=== PATIENT | female | born 1955 | race Caucasian/White ===

== ENCOUNTER 2018-10-19 11:43 | Emergency (ER) | payer BC ==
[2018-10-19 11:52] VITALS: BP 139/84; PULSE 84; RESP 18; TEMP 98.3
[2018-10-19] MEDS ORDERED: DIPH,PERTUS(ACELL)TETVAC-LF 0.5 ML VIAL IM ONE (13:13)
[2018-10-19] MEDS ORDERED: DOXYCYCLINE 100 MG CAP PO STA (13:14)
--- NOTE | 2018-10-19 13:16 | ED ---
Animal Bite HPI - General Chief Complaint: Animal Bite Stated Complaint: dog bite Time Seen by Provider: 10/19/18 12:34 Source: patient, RN notes reviewed, old records reviewed Mode of arrival: ambulatory Limitations: no limitations - History of Present Illness Initial Comments: Patient 60-year-old female presents emergency room this day with left-sided facial swelling, 2 days after a dog bite. Patient reports it was a friend's dog and she startled and bit her on the cheek. Bleeding stopped shortly after. Patient has been keeping the area clean with peroxide and warm compresses. Patient reports that she's noticed increased swelling over the left cheek and felt that she needed to be seen. Her tetanus shot is not up-to-date. The dog's vaccines are up-to-date. MD Complaint: animal bite - Related Data Home Medications Medication Instructions Recorded Confirmed ALPRAZolam [Xanax] 0.25 mg PO DAILY 10/19/18 10/19/18 ALPRAZolam [Xanax] 0.5 mg PO HS 10/19/18 10/19/18 Citalopram Hydrobromide [CeleXA] 40 mg PO DAILY 10/19/18 10/19/18 Triamterene-Hctz 37.5-25Mg 1 tab PO DAILY 10/19/18 10/19/18 [Maxzide 37.5-25] busPIRone HCl [Buspar] 10 mg PO DAILY 10/19/18 10/19/18 Previous Rx's Medication Instructions Recorded Doxycycline [Vibramycin] 100 mg PO BID #14 cap 10/19/18 Allergies Allergy/AdvReac Type Severity Reaction Status Date / Time Penicillins Allergy Rash/Hives Verified 10/19/18 12:37 Review of Systems ROS Statement: Those systems with pertinent positive or pertinent negative responses have been documented in the HPI. ROS Other: All systems not noted in ROS Statement are negative. Past Medical History Past Medical History: Hypertension Additional Past Medical History / Comment(s): melanoma History of Any Multi-Drug Resistant Organisms: None Reported Past Surgical History: Adenoidectomy, Tonsillectomy Past Psychological History: Anxiety, Depression Smoking Status: Never smoker Past Alcohol Use History: None Reported Past Drug Use History: None Reported General Exam Limitations: no limitations General appearance: alert, in no apparent distress Head exam: Present: atraumatic, normocephalic, normal inspection Eye exam: Present: normal appearance, PERRL, EOMI. Absent: scleral icterus, conjunctival injection, periorbital swelling ENT exam: Present: normal exam, mucous membranes moist, other (swelling over L cheek, abrasiom and scabbing from bite noted. ) Neck exam: Present: normal inspection. Absent: tenderness, meningismus, lymphadenopathy Respiratory exam: Present: normal lung sounds bilaterally. Absent: respiratory distress, wheezes, rales, rhonchi, stridor Cardiovascular Exam: Present: regular rate GI/Abdominal exam: Present: soft, normal bowel sounds. Absent: distended, tenderness, guarding, rebound, rigid Course Vital Signs 10/19/18 11:47 Temperature 98.3 F Pulse Rate 84 Respiratory 18 Rate Blood Pressure 139/84 O2 Sat by Pulse 96 Oximetry Medical Decision Making - Medical Decision Making 62-year-old female persist is after dog bite with some surrounding induration and swelling from the left cheek. The area by medics are closed and scabbed at this time. No significant drainage was noted. She has no fever at this time. I suspected the Patient on doxycycline and she is ALLERGIC to penicillins. Given updated tetanus. Discussed monitoring Nadege for worsening redness or swelling and return if it does occur. All questions were answered. Disposition Clinical Impression: Dog bite of face Disposition: HOME SELF-CARE Condition: Good Instructions (If sedation given, give patient instructions): Animal Bite (ED) Additional Instructions: Patient denies a take antibiotic as prescribed. Have close follow-up with her primary care doctor, monitor the area of redness. If the area of redness or swelling worsens in the next 1-2 days please return for reevaluation. Continue to apply warm compresses over the cheek. Prescriptions: Doxycycline [Vibramycin] 100 mg PO BID #14 cap Is patient prescribed a controlled substance at d/c from ED?: No Referrals: Nonstaff,Physician [Primary Care Provider] - 1-2 days Katerina Torres MD [STAFF PHYSICIAN] - 1-2 days Time of Disposition: 13:15
== END 2018-10-19 13:33 | disposition home or self-care (01) ==
LOC: EC 11:43
DX: S01.452A Open bite of left cheek and temporomandibular area, initial encounter (principal); Z23 Encounter for immunization; I10 Essential (primary) hypertension; F41.9 Anxiety disorder, unspecified; F32.9 Major depressive disorder, single episode, unspecified; Z79.899 Other long term (current) drug therapy; Z88.0 Allergy status to penicillin; Z85.820 Personal history of malignant melanoma of skin; W54.0XXA Bitten by dog, initial encounter
CPT/HCPCS: 90471; 90715; 99283

== ENCOUNTER → 2019-05-12 | Outpatient (CLI) | payer BC ==
[2019-05-12 08:26] VITALS: BP 137/87; PULSE 67; RESP 18; TEMP 98
--- NOTE | 2019-05-12 09:15 | P.HPOB ---
History of Present Illness H&P Date: 05/12/19 Chief Complaint: The patient is here for her routine gynecologic exam and ma mmogram. This is a 63-year-old with an LMP of 2004 who is status post AMAURY and unilateral oophorectomy for benign reasons. The patient is here to establish with this office. She states her last pelvic exam was about 1 year ago. She is without gynecologic complaints. Review of Systems The patient's weight has been stable over the last year. She denies respirator y, cardiac, or G.I. problems, but she did have some heartburn yesterday which did resolve. Past Medical History Past Medical History: Cancer, Hypertension Additional Past Medical History / Comment(s): melanoma involving the year. PAST [employer] WORK[employer] HISTORY: She has no history of STDs. History of Any Multi-Drug Resistant Organisms: None Reported Past Surgical History: Adenoidectomy, Section, Hysterectomy, Tonsillectomy, Tubal Ligation Additional Past Surgical History / Comment(s): section 2, AMAURY with unilateral oophorectomy in 2003. Excision of melanoma skin cancer. Colonoscopy 2017(next after 5yr) Past Psychological History: Anxiety, Depression Smoking Status: Former smoker Past Alcohol Use History: Daily (1 or 2 glasses of wine per day.) Additional Past Alcohol Use History / Comment(s): Quit smoking in 2013. Past Drug Use History: None Reported Additional History: She has been since 2008 and this is her second marriage. She is not sexually active. She works for the [id number] in [employer]. - Past Family History Father Family Medical History: Diabetes Mellitus Mother Family Medical History: Cancer Additional Family Medical History / Comment(s): Colon cancer in her 80s. Daughter(s) Additional Family Medical History / Comment(s): Bipolar disorder. Medications and Allergies Home Medications Medication Instructions Recorded Confirmed Type ALPRAZolam [Xanax] 0.5 mg PO DAILY 10/19/18 05/12/19 History ALPRAZolam [Xanax] 0.5 mg PO HS 10/19/18 05/12/19 History Citalopram Hydrobromide [CeleXA] 40 mg PO DAILY 10/19/18 05/12/19 History Triamterene-Hctz 37.5-25Mg 1 tab PO DAILY 10/19/18 05/12/19 History [Maxzide 37.5-25] busPIRone HCl [Buspar] 10 mg PO DAILY 10/19/18 05/12/19 History Biotin 5,000 mcg PO DAILY 05/12/19 05/12/19 History Calcium Carbonate [Calcium] 600 mg PO DAILY 05/12/19 05/12/19 History Fish Oil/Dha/Epa [Fish Oil 1,200 1 each PO DAILY 05/12/19 05/12/19 History mg Fish Oil] Magnesium 200 mg PO DAILY 05/12/19 05/12/19 History Multivit-Min/Iron/Folic/Lutein 1 each PO DAILY 05/12/19 05/12/19 History [Centrum Silver Women Tablet] Allergies Allergy/AdvReac Type Severity Reaction Status Date / Time Penicillins Allergy Rash/Hives Verified 10/19/18 12:37 Exam Vital Signs Temp Pulse Resp BP Pulse Ox 05/12/19 08:18 98.0 F 67 18 137/87 99 Intake and Output 05/11/19 05/12/19 05/12/19 22:59 06:59 14:59 Other: Weight 77.111 kg Height 5 feet 10 inches, weight 170 pounds, BMI 24.4. This is a well-developed well-nourished white female who is alert and oriented times 3 in no acute distress. HEENT: Within normal limits. NECK: Supple without mass or thyromegaly. CHEST AND LUNGS: Clear to auscultation. HEART: Regular rate and rhythm. BREASTS: Are without mass or discharge. AXILLARY EXAM: Negative for adenopathy. BACK: Negative for CVA tenderness. ABDOMEN: Soft, nontender, without palpable masses. PELVIC EXAM: External genitalia appears normal with mild atrophy. Vagina appears normal with mild atrophy. There is no evidence of prolapse. Bimanual examination is negative for mass or tenderness. RECTAL EXAM: Rectovaginal exam is negative for mass or tenderness and is negative for occult blood. EXTREMITIES: Nontender. IMPRESSION: 1. 63-year-old menopausal female who is status post AMAURY with unilateral oophorectomy for benign reasons, with normal gynecologic exam. PLAN: 1. Pap smears have been discontinued. 2. Self breast awareness was discussed with the patient. 3. Screening mammogram will be done today. 4. Osteoporosis prevention was discussed. I have stressed the importance of adequate calcium, vitamin D and regular exercise. Recommended amounts of calcium and vitamin D were also discussed. Bone density screening will be done today. She states she has had one in the past that was normal. 5. She was advised to return in one year for her annual well woman exam.
--- NOTE | 2019-05-12 17:04 | BD ---
EXAMINATION TYPE: Axial Bone Density DATE OF EXAM: 05/12/2019 COMPARISON: NONE CLINICAL HISTORY: Height: 69 inches Weight: 163 pounds FRAX RISK QUESTIONS: Alcohol (3 or more units per day): no Family History (Parent hip fracture): no Glucocorticoids (More than 3mos): no (Ex: prednisone, prednisolone, methylprednisolone, dexamethasone, and hydrocortisone). History of Fracture in Adulthood: nose; recently Secondary Osteoporosis: 1. Type 1 Diabetes: no 2. Hyperthyroidism: no 3. Menopause before 45: no 4. Malnutrition: no 5. Chronic liver disease: no Rheumatoid Arthritis: unsure Current Tobacco Use: no RISK FACTORS HISTORY OF: Family History of Osteoporosis: possibly Active: yes Diet low in dairy products/other sources of calcium: no Postmenopausal woman: yes Take estrogen and/or progesterone medications: not now How long: hormonal contraceptives several years Lost more than 2 inches in height since high school: no Frequent falls: no Poor Health: no Hyperparathyroidism: no Adrenal Insufficiency: no MEDICATIONS: Prednisone or other steroids: no Thyroid Medications: no Osteoporosis Medications: no Additional Medications: blood pressure med, multivitamin Additional History: EXAM MEASUREMENTS: Bone mineral densitometry was performed using the [employer] System. Bone mineral density as measured about the Lumbar spine is: ----- L1-L4(G/cm2): 1.099 T Score Values are as follows: ----- L2: -0.9 ----- L3: -1.1 ----- L4: -0.5 ----- L1-L4: -0.7 Bone mineral density not previously done at this facility; done elsewhere Bone mineral density about the R hip (g/cm2): 0.997 Bone mineral density about the L hip (g/cm2): 1.027 T Score values are as follows: -----R Neck: -0.3 -----L Neck: -0.1 -----R Total: 0.0 -----L Total: -0.1 Bone mineral density not previously done at this facility; done elsewhere IMPRESSION: Normal (Values between +1 and -1 indicate normal bone mass). Consider repeating this study in 5 year s or sooner if there is some new clinical indication. NOTE: T-SCORE=SD OF THE YOUNG ADULT MEAN.
--- NOTE | 2019-05-31 10:20 | MM ---
Reason for exam: screening (asymptomatic). Last mammogram was performed 1 year and 2 months ago. History: Patient is postmenopausal and history of other cancer. Took hormonal contraceptives for 8 years. Physical Findings: A clinical breast exam by your physician is recommended on an annual basis and results should be correlated with mammographic findings. MG 3D Screening Mammo W/Cad Bilateral CC and MLO view(s) were taken. Prior study comparison: March 02, 2018, mammogram, performed at [facility]. January 02, 2017, mammogram, performed at [facility]. There are scattered fibroglandular densities. Benign appearing calcifications in the right breast. No suspicious abnormality. No significant changes when compared with prior studies. ASSESSMENT: Benign, BI-RAD 2 RECOMMENDATION: Routine screening mammogram of both breasts in 1 year.
--- NOTE | 2019-06-01 16:35 | P.PN ---
Progress Note - Text Progress Note Date: 06/01/19 OUTPATIENT FOLLOW-UP NOTE TEST(S)/RESULTS: Test results from 05/12/2019 include normal bone density test and benign mammogram. METHOD OF NOTIFICATION: A message with these results was left on the patient's voicemail. PATIENT COMMENTS: DIAGNOSIS: Normal bone density test and benign mammogram. DISCUSSION: I have stressed the importance of getting adequate amounts of calcium, vitamin D, and regular exercise. PLAN: Repeat bone density test in 5 years. She was advised to return in one year for her annual well woman exam.
== END | disposition home or self-care (01) ==
LOC: RADMAMWWP 08:00
PROVIDERS: ATTEND Obstetrics & Gynecology
DX: Z12.31 Encounter for screening mammogram for malignant neoplasm of breast (principal); Z78.0 Asymptomatic menopausal state
CPT/HCPCS: 77063; 77067; 77080

== ENCOUNTER → 2019-05-20 | Outpatient (CLI) | payer BC ==
[2019-05-20 10:52] LABS: African American GFR (CKD) >90 (>60 ml/min/1.73 sqM); Blood Urea Nitrogen 9 mg/dL (7-17); Non-African American GFR(CKD) >90 (>60 ml/min/1.73 sqM)
--- NOTE | 2019-05-20 13:21 | CT ---
EXAMINATION TYPE: CT ChestAbdPelvis w con DATE OF EXAM: 05/20/2019 COMPARISON: None HISTORY: 63-year-old female Melanoma left ear TECHNIQUE: Contiguous axial scanning of the chest, abdomen, and pelvis performed with IV Contrast, pa tient injected with 100 mL of Isovue 300. Delayed images through the kidneys were obtained. Coronal/s agittal reconstructions performed. CT DLP: 1599 mGycm Automated exposure control for dose reduction was used. FINDINGS: CHEST: Heart normal size without pericardial effusion. Ascending aorta mildly aneurysmal at 4.0 cm. Proximal arch mildly aneurysmal at 4.1 cm. Conventional arch vessel branching anatomy. No thoracic lymphadenopathy by CT size criteria. Strandy atelectasis basilar right middle lobe. Mild biapical pleural-parenchymal scarring. No consoli dation or pleural effusion. Small 4 mm peripheral left basilar pulmonary nodule, axial image 52, is nonspecific. Otherwise, no madrigal spicious pulmonary nodules or masses. ABDOMEN: Tiny hiatal hernia. Large 6.0 cm hemangioma within the posterior left hepatic lobe shows peripheral nodular filling and c entripetal filling on delayed images. Otherwise, no additional focal liver lesion. Portal venous syst em is patent. No biliary ductal dilatation. Right adrenal nodule measures 2.7 x 1.9 cm is nonspecific. Adrenal mass protocol CT can further evalu ate. Kidneys, spleen, and pancreas appear within normal limits. No dilated small bowel, free fluid, or free air. No mesenteric or retroperitoneal lymphadenopathy. Appendix not clearly identified. Oral contrast progressed to the splenic flexure. Moderate stool wes en. No pericolonic inflammatory change. PELVIS: Bladder is distended. Uterus surgically absent. Left ovary is visualized. Right ovary not clearly see n. Small phleboliths in the pelvis. No abnormal fluid collection or pelvic lymphadenopathy. BONES: Numerous punctate bone islands about the hips, pubic symphysis, SI joints. Similar findings at both s houlders. Moderate degenerative disc disease midthoracic spine. A few additional scattered punctate b one islands are present within the spine. No osseous destructive process. IMPRESSION: 1. A NONSPECIFIC 4 MM PERIPHERAL LEFT BASILAR PULMONARY NODULE. THREE-MONTH FOLLOW-UP RECOMMENDED TO REASSESS. 2. RIGHT ADRENAL NODULE MEASURES 2.7 X 1.9 CM AND IS ALSO NONSPECIFIC. POSSIBLE ADRENAL ADENOMA. ADRE NAL MASS PROTOCOL CT CAN FURTHER EVALUATE. 3. INCIDENTAL LARGE 6.0 CM CENTRAL LEFT HEPATIC LOBE HEMANGIOMA IS A BENIGN FINDING. INCIDENTAL OSTEO POIKILOSIS IS ALSO BENIGN. 4. INCIDENTAL MILD ANEURYSM ASCENDING AORTA AT 4.1 CM.
--- NOTE | 2019-05-20 13:58 | NM ---
EXAMINATION TYPE: NM bone scan whole body DATE OF EXAM: 05/20/2019 COMPARISON: CT scan 05/20/2019 HISTORY: Melanoma Delayed whole-body scanning was performed following the injection of 23.4 mCi Tc 99m MDP. Images acq uired 3 hours post injection. FINDINGS: Mild to moderate uptake is seen throughout the cervical, thoracic and lower lumbar spine is nonspecif ic. Abnormal uptake involving the hips appears to be degenerative or post arthritic. Small focal areas of increased sclerosis seen on the CT scan involving the pelvis and vertebral, not well depicted by bon e scan. Abnormal uptake involving the feet and left ankle likely post arthritic. Abnormal uptake involving the shoulders likely post arthritic. Abnormal uptake involving the mandible most likely related to periodontal disease. IMPRESSION: 1. Tiny bony density seen by CT scan did not demonstrate significant uptake bone scan therefore most likely are benign. 2. Nonspecific uptake throughout the visualized vertebral column appears most likely degenerative
== END | disposition home or self-care (01) ==
LOC: RADNMMAIN 09:34
PROVIDERS: ATTEND Internal Medicine Hematology & Oncology
DX: Z03.89 Encounter for observation for other suspected diseases and conditions ruled out (principal); C43.22 Malignant melanoma of left ear and external auricular canal; R91.1 Solitary pulmonary nodule; E27.8 Other specified disorders of adrenal gland; D18.03 Hemangioma of intra-abdominal structures; I71.2 Thoracic aortic aneurysm, without rupture; Q78.8 Other specified osteochondrodysplasias; R93.7 Abnormal findings on diagnostic imaging of other parts of musculoskeletal system; Z88.0 Allergy status to penicillin
CPT/HCPCS: 82565; 84520; 71260; 74177; 36415; 78306; A9503; Q9967 ×2

== ENCOUNTER → 2019-10-07 | Outpatient (CLI) | payer BC ==
--- NOTE | 2019-10-07 14:18 | CT ---
EXAMINATION TYPE: CT chest w con DATE OF EXAM: 10/07/2019 COMPARISON: 05/20/2019 HISTORY: follow up pulmonary nodule, history of melanoma CT DLP: 193.2 mGycm, Automated exposure control for dose reduction was used. CONTRAST: Performed injected with 90 mL of Isovue 300. TECHNIQUE: Axial images were obtained at 5 mm thick sections. Reconstructed images are reviewed on [employer] computer in the coronal plane. FINDINGS: Portion of the thyroid visualized is normal. Some minimal thickening along the major fissure at the peripheral right lung base is present. Small a mount of fluid could be considered. Series 4 image 52. This was present previously and may be 1 mm la rger currently measuring 0.5 cm. Given the change, consider PET CT for additional evaluation. No enlarged mediastinal or hilar adenopathy is evident. The ascending aorta diameter at the level o f the main pulmonary artery is 4.0 cm. The main pulmonary artery diameter at the bifurcation is 2.[address] sections are obtained through the upper abdomen. There is a large hypodensity within the p ortal region measuring 6.0 cm present previously and stable. Bibasilar compatible with previously roberto cribed hemangioma. IMPRESSIONS: 1. There is been some interval thickening along the major fissure near the right lung base which is a n interval change from comparison. Given the change, consider PET CT for additional evaluation. Metas tatic disease is not excluded.
== END | disposition home or self-care (01) ==
LOC: RADCTMAIN 12:50
PROVIDERS: ATTEND Internal Medicine Hematology & Oncology
DX: R91.1 Solitary pulmonary nodule (principal); C34.90 Malignant neoplasm of unspecified part of unspecified bronchus or lung; Z88.0 Allergy status to penicillin
CPT/HCPCS: 71260; Q9967

== ENCOUNTER → 2019-11-12 | Outpatient (CLI) | payer BC ==
--- NOTE | 2019-11-14 12:11 | PE ---
Nuclear medicine PET/CT HISTORY: Melanoma subsequent, right lung cancer, initial Patient received 11.2 mCi of F-18 FDG intravenously in delayed scanning was performed through the [employer] le body. Correlation to chest CT 10/07/2019 Neck and chest: There is no suspicious hypermetabolic uptake. No pleural or pericardial effusion. Asy mmetric uptake along the musculature on the right at the level of the posterior elements of the C2 ve rtebral body is thought likely to be due to physiologic change. There is multilevel facet arthropathy change. There is no cervical or supraclavicular adenopathy. No mediastinal, axillary, hilar adenopat hy. Small pericardial effusion is present. No pleural effusion. There are coronary artery calcificati ons. Ascending aortic aneurysm is present. Aneurysm measures approximately 4 cm. The focus of thicken ing along the fissure in the right middle lobe noted on prior CT shows no suspicious uptake. ABDOMEN: No suspicious uptake. No change in right adrenal mass. No retroperitoneal adenopathy, no beba dent liver mass. No ascites. Osseous structures are unremarkable. Facet arthropathy and degenerative disc changes are noted in the lower lumbar spine. Extremities are normal. IMPRESSION: No suspicious uptake. No evident lung mass. Additional probable physiologic findings desc ribed above.
== END | disposition home or self-care (01) ==
LOC: RADPETMAIN 12:01
PROVIDERS: ATTEND Internal Medicine Hematology & Oncology
DX: C43.8 Malignant melanoma of overlapping sites of skin (principal); J98.4 Other disorders of lung
CPT/HCPCS: 78816; A9552

== ENCOUNTER → 2020-05-16 | Outpatient (CLI) | payer BC ==
[2020-05-16 10:51] VITALS: BP 131/84; PULSE 70; RESP 18; TEMP 97.8
--- NOTE | 2020-05-16 11:26 | P.HPOB ---
History of Present Illness H&P Date: 05/16/20 Chief Complaint: The patient is here for her routine gynecologic exam and ma mmogram. This is a 64-year-old with an LMP of 2004. She is status post [facility] with right oophorectomy for benign reasons. She is without gynecologic complaints. Review of Systems The patient has lost 4 pounds over the last year. She denies respiratory, cardiac, or G.I. problems. Past Medical History Past Medical History: Cancer, Hypertension Additional Past Medical History / Comment(s): melanoma involving the ear. PAST [employer]ER HISTORY: She has no history of STDs. History of Any Multi-Drug Resistant Organisms: None Reported Past Surgical History: Adenoidectomy, Section, Hysterectomy, Tonsillectomy, Tubal Ligation Additional Past Surgical History / Comment(s): section 2, AMAURY with R oophorectomy in 2003. Excision of melanoma skin cancer. Colonoscopy 2017(next after 5yr) Past Psychological History: Anxiety, Depression Smoking Status: Former smoker Past Alcohol Use History: Daily (2 glasses of wine per day.) Additional Past Alcohol Use History / Comment(s): Quit smoking in 2013. Past Drug Use History: None Reported Additional History: She has been since 2008 and is not sexually active. This is her second marriage. She works in [employer] for [employer]. - Past Family History Father Family Medical History: Diabetes Mellitus Mother Family Medical History: Cancer Additional Family Medical History / Comment(s): Colon cancer in her 80s. Daughter(s) Additional Family Medical History / Comment(s): Bipolar disorder. Medications and Allergies Home Medications Medication Instructions Recorded Confirmed Type ALPRAZolam [Xanax] 0.5 mg PO DAILY 10/19/18 05/16/20 History ALPRAZolam [Xanax] 0.5 mg PO HS 10/19/18 05/16/20 History Citalopram Hydrobromide [CeleXA] 40 mg PO DAILY 10/19/18 05/16/20 History Triamterene-Hctz 37.5-25Mg 1 tab PO DAILY 10/19/18 05/16/20 History [Maxzide 37.5-25] busPIRone HCl [Buspar] 10 mg PO DAILY 10/19/18 05/16/20 History Biotin 5,000 mcg PO DAILY 05/12/19 05/16/20 History Calcium Carbonate [Calcium] 600 mg PO DAILY 05/12/19 05/16/20 History Fish Oil/Dha/Epa [Fish Oil 1,200 1 each PO DAILY 05/12/19 05/16/20 History mg Fish Oil] Magnesium 200 mg PO DAILY 05/12/19 05/16/20 History Multivit-Min/Iron/Folic/Lutein 1 each PO DAILY 05/12/19 05/16/20 History [Centrum Silver Women Tablet] Allergies Allergy/AdvReac Type Severity Reaction Status Date / Time Penicillins Allergy Rash/Hives Verified 05/16/20 10:44 Exam Vital Signs Temp Pulse Resp BP Pulse Ox 05/16/20 10:46 97.8 F 70 18 131/84 99 Intake and Output 05/15/20 05/16/20 05/16/20 22:59 06:59 14:59 Other: Weight 75.296 kg Height 5 feet 9 inches, weight 166 pounds, BMI 24.5. This is a well-developed well-nourished white female who is alert and oriented times 3 in no acute distress. HEENT: Within normal limits. NECK: Supple without mass or thyromegaly. CHEST AND LUNGS: There is mild scattered inspiratory rhonchi in the right upper lobe. The patient states she has had multiple tests done recently including chest x-ray and CT scans of the chest as part of a workup. HEART: Regular rate and rhythm. BREASTS: Are without mass or discharge. AXILLARY EXAM: Negative for adenopathy. BACK: Negative for CVA tenderness. ABDOMEN: Soft, nontender, without palpable masses. PELVIC EXAM: External genitalia appears normal with moderate atrophy. Vagina appears normal mild to moderate atrophy. There is no evidence of prolapse. Bimanual examination is negative for mass or tenderness. RECTAL EXAM: Rectovaginal exam is negative for mass or tenderness and is negative for occult blood. EXTREMITIES: Nontender. IMPRESSION: 1. 64-year-old menopausal female status post AMAURY and RSO for benign reasons with normal gynecologic exam. PLAN: 1. Pap smears have been discontinued. 2. Self breast awareness was discussed with the patient. 3. Any mammogram will be done today. 4. Osteoporosis prevention was discussed. I have stressed the importance of adequate calcium, vitamin D and regular exercise. Recommended amounts of calcium and vitamin D were also discussed. Bone density test done 1 year ago was normal. We will plan on repeating this after 5 years. 5. She was advised to return in one year for her annual well woman exam.
--- NOTE | 2020-05-17 10:40 | MM ---
Reason for exam: screening (asymptomatic). Last mammogram was performed 1 year ago. History: Patient is postmenopausal and has history of other cancer at age 54. Took hormonal contraceptives for 8 years. Physical Findings: A clinical breast exam by your physician is recommended on an annual basis and results should be correlated with mammographic findings. MG Screening Mammo w CAD Bilateral CC and MLO view(s) were taken. Prior study comparison: May 12, 2019, bilateral MG 3d screening mammo w/cad. March 02, 2018, mammogram, performed at [facility]. The breast tissue is heterogeneously dense. This may lower the sensitivity of mammography. There are benign appearing round calcifications bilaterally. Focal asymmetry left posterior breast measuring 8mm, 7-8cm from nipple. ASSESSMENT: Incomplete: need additional imaging evaluation, BI-RAD 0 RECOMMENDATION: Special view mammogram of the left breast. If lesion persists on supplemental views, image directed ultrasound is recommended. [facility] will attempt to contact patient to return for supplemental views and ultrasound if indicated.
--- NOTE | 2020-05-18 09:42 | P.PN ---
Progress Note - Text Progress Note Date: 05/18/20 Pt called asking why she needs as left breast work-up following her 05/16/20 screening mammogram. We have discussed the small new density found and the importance of the follow up. She has an appointment for the additional views on 05/22/20. She states she will be establishing with a new PCP in the near future and will discuss the right lung rhonchi noted in the upper lobe. She states similar findings were found in the past and she had a CT of the chest about 6 months ago with a PET scan and the findings were benign.
== END | disposition home or self-care (01) ==
LOC: WWCWWP 10:29
PROVIDERS: ATTEND Obstetrics & Gynecology
DX: Z12.31 Encounter for screening mammogram for malignant neoplasm of breast (principal)
CPT/HCPCS: 77067

== ENCOUNTER → 2020-05-22 | Outpatient (CLI) | payer BC ==
--- NOTE | 2020-05-22 10:54 | MM ---
Reason for exam: additional evaluation requested from abnormal screening. Last mammogram was performed less than 1 month ago. History: Patient is postmenopausal and has history of other cancer at age 54. Took hormonal contraceptives for 8 years. Physical Findings: Nurse did not find any significant physical abnormalities on exam. MG 3D Work Up W/Cad LT Spot compression CC, spot compression MLO, and LM view(s) were taken of the left breast. Prior study comparison: May 16, 2020, bilateral MG screening mammo w CAD. May 12, 2019, bilateral MG 3d screening mammo w/cad. The breast tissue is heterogeneously dense. This may lower the sensitivity of mammography. Posterior medial asymmetric density disperses on additional views. No significant new findings when compared with previous films. These results were verbally communicated with the patient and result sheet given to the patient on 05/22/20. ASSESSMENT: Negative, BI-RAD 1 RECOMMENDATION: Return to routine screening mammogram schedule for both breasts.
== END | disposition home or self-care (01) ==
LOC: RADMAMWWP 09:08
PROVIDERS: ATTEND Obstetrics & Gynecology
DX: R92.8 Other abnormal and inconclusive findings on diagnostic imaging of breast (principal)
CPT/HCPCS: 77061; 77065

== ENCOUNTER → 2021-08-30 | Outpatient (CLI) | payer MEDICARE ==
[2021-08-30 11:25] VITALS: BP 149/67; PULSE 67; RESP 16; TEMP 97.9
--- NOTE | 2021-08-30 11:54 | P.GSHP ---
History of Present Illness H&P Date: 08/30/21 Chief Complaint: left breast stage I [id number]? Shantell is a 65 year old white female seen in consultation for Dr. Silverio regarding a biopsy proven left breast cancer. She had a routine mammogram on 07-09-21, followed by a diagnositc mammogram on an ultrasound on 07-24-21. This led to a core biopsy on 08-16-21. Pathology revealed an invasive ductal cancer. This was reviewed with the radiologist. This is about 1.2 cm in size. It is not complaining of any new lumps masses or nodules of concern in either breast prior to the biopsy. She had never had any surgeries or biopsies on her breast in the past. She is not complaining of any nipple discharge, skin changes in the breasts, trauma, or infection in the breast. 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 She underwent interferon treatment for 1 month, but stopped secondary to poor tolerance. She underwent resection of lymph nodes in her neck which were negative. She had extensive metastatic workup done approximately [address] scans and a PET scan all of which were negative. Caffiene: few cups/day nicotine: stopped 8 years ago, use to smoke 1/PPD for 30 years second hand smoke: none chocolate: occasional BCP: 10 years, off of them for 40 years hormones: none Family History: mother: colon cancer Hormonal History: menarche: 12 , breast fed: yes, first born at 29 menopause: hysterectomy at 50, not for cancer, took one ovary done for bleeding; fibroid tumors BCP: 10 years off them for 40 years Surgical History: tonsil and adenoids 2 C-sections tubal left ear melanoma Medical History: anxiety HTN Social History: nicotine: former smoker alcohol: since May stopped drinking, was drinking daily wine Marijuana: Negative Drugs: Negative - Constitutional Constitutional: Denies chills, Denies fever - EENT Eyes: denies blurred vision, denies pain Ears: bilateral: decreased hearing, tinnitus Ears, nose, mouth and throat: Denies headache, Denies sore throat - Breasts Breasts: bilateral: as per HPI - Cardiovascular Cardiovascular: Denies chest pain, Denies shortness of breath - Respiratory Respiratory: Denies cough, Denies 7 - Gastrointestinal Gastrointestinal: Denies abdominal pain, Denies diarrhea, Denies nausea, Denies vomiting - Genitourinary (Female) Genitourinary: Denies dysuria, Denies hematuria - Menstruation Menstruation: Reports post hysterectomy - Musculoskeletal Musculoskeletal: Denies myalgias - Integumentary Comment: history of melanoma Integumentary: Reports as per HPI - Neurological Neurological: Denies numbness, Denies weakness - Psychiatric Psychiatric: Reports anxiety - Endocrine Endocrine: Denies fatigue, Denies weight change - Hematologic/Lymphatic Comment: none - Allergic/Immunologic Allergic/Immunologic: Reports as per HPI Past Medical History Past Medical History: Cancer, Hypertension Additional Past Medical History / Comment(s): melanoma involving the ear. 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 History of Any Multi-Drug Resistant Organisms: None Reported Past Surgical History: Adenoidectomy, Section, Hysterectomy, Tonsillectomy, Tubal Ligation Additional Past Surgical History / Comment(s): section 2, AMARUY with R oophorectomy in 2003. Excision of melanoma skin cancer. Colonoscopy 2017(next after 5yr) Past Psychological History: Anxiety, Depression Smoking Status: Never smoker Past Alcohol Use History: Daily Additional Past Alcohol Use History / Comment(s): Quit smoking in 2013. Past Drug Use History: None Reported - Past Family History Father Family Medical History: Diabetes Mellitus Mother Family Medical History: Cancer Additional Family Medical History / Comment(s): Colon cancer in her 80s. Daughter(s) Additional Family Medical History / Comment(s): Bipolar disorder. Medications and Allergies Home Medications Medication Instructions Recorded Confirmed Type ALPRAZolam [Xanax] 0.5 mg PO DAILY 10/19/18 08/30/21 History Citalopram Hydrobromide [CeleXA] 40 mg PO DAILY 10/19/18 08/30/21 History Triamterene-Hctz 37.5-25Mg 1 tab PO DAILY 10/19/18 08/30/21 History [Maxzide 37.5-25] busPIRone HCl [Buspar] 10 mg PO DAILY 10/19/18 08/30/21 History Biotin [Biotin Disolve] 5,000 mcg PO DAILY 05/12/19 08/30/21 History Calcium Carbonate [Calcium] 600 mg PO DAILY 05/12/19 08/30/21 History Fish Oil/Dha/Epa [Fish Oil 1,200 1 each PO DAILY 05/12/19 08/30/21 History mg Fish Oil] Magnesium 200 mg PO DAILY 05/12/19 08/30/21 History Multivit-Min/Iron/Folic/Lutein 1 each PO DAILY 05/12/19 08/30/21 History [Centrum Silver Women Tablet] Allergies Allergy/AdvReac Type Severity Reaction Status Date / Time Penicillins Allergy Rash/Hives Verified 08/30/21 11:17 Surgical - Exam Vital Signs Temp Pulse Resp BP Pulse Ox 97.9 F 67 16 149/67 100 08/30/21 11:19 08/30/21 11:19 08/30/21 11:19 08/30/21 11:19 08/30/21 11:19 BMI 22.3 - General no distress - Eyes normal ocular movement - ENT no hearing loss - Respiratory normal respiratory effort - Cardiovascular Rhythm: regular Heart Sounds: normal: S1, S2 - Abdomen Abdomen: soft - Integumentary left ear resection of melanoma - Neurologic no disoriented, no combative - Musculoskeletal normal gait - Psychiatric oriented to time, oriented to person, oriented to place, speech is normal, memory intact breast Exam: BRA: 36C inspection: Bilateral grade 2 ptosis Palpation: Right breast: Multiple positional exam no dominant masses or nodules of concern Right axilla: No adenopathy of concern Left breast: Multiple positional exam upper inner quadrant with increased ecchymosis and hematoma/probable area of nodularity approximately 1.2 cm in size Left axilla: No adenopathy of concern Results Mammogram and ultrasound results reviewed with radiology; lesion appears to be close to chest wall however on palpation it is freely mobile Assessment and Plan Assessment: Impression: Stage IA invasive ductal carcinoma left breast awaiting HER-2 results Prior history of melanoma no evidence of metastatic disease proximally 13 years ago Plan: Presentation of case at tumor board Probable needle localization lumpectomy left breast, sentinel node biopsy, possible hyperplastic tissue transfer, possible mastopexy incision Cc: Dr. Silverio
== END ==
LOC: WWCWWP 11:10
PROVIDERS: ATTEND Surgery
DX: C50.912 Malignant neoplasm of unspecified site of left female breast (principal); F32.A Depression, unspecified; F41.9 Anxiety disorder, unspecified; I10 Essential (primary) hypertension; Z88.0 Allergy status to penicillin; Z87.891 Personal history of nicotine dependence

== ENCOUNTER 2021-10-09 08:18 | Day surgery (SDC) | payer MEDICARE ==
[2021-10-04 15:23] VITALS: BMI 22.1
[~2021-10-09 08:18] MED LIST: DEXAMETHASONE SOD PHOSPHATE 4 MG/ML 1 ML VIAL IV ONE; HEPARIN SODIUM,PORCINE/PF 5,000 UNIT/0.5 ML SYRINGE SQ PRN; HYDROmorphone 0.5 MG/0.5 ML SYRINGE IVP PRN; LIDOCAINE 1% (10MG/ML) FOR IV START INTRADERMA PRN; ONDANSETRON 4 MG/2 ML VIAL IVP ONE; Pre Op ABX Message 1 EACH MISC MISCELLANE ONE
[2021-10-09] MEDS: LACTATED RINGERS 1,000 ML IV SCH ×2 (09:26→16:23)
[2021-10-09] MEDS ORDERED: ALPRAZolam 0.25 MG TAB ONE (09:34)
[2021-10-09] MEDS ORDERED: ALPRAZolam 0.25 MG TAB PO ONE (09:38)
[2021-10-09] MEDS ORDERED: LIDOCAINE 1% INJ 10MG/ML (20 ML MDV) SQ ONE ×2 (10:36→13:17)
--- NOTE | 2021-10-09 12:23 | P.NAPBC ---
NAPBC Queries - NAPBC Queries Was patient's case review presented at [facility] tumor board? If no, comment.: Yes Was patient's pathology reviewed at [facility]? If no, comment.: Yes Was breast conservation surgery offered? If no, comment.: Yes Was sentinel node biopsy offered? If no, comment.: Yes Was diagnosis confirmed by percutaneous core biopsy? If no, comment.: Yes Is patient mastectomy patient?: No Was a preop referral to reconstructive surgeon offered?: No Clinical Stage: stage I invasive ductal left breast cancer
[2021-10-09] MEDS ORDERED: fentaNYL (PF) 50 MCG/ML 2 ML AMP ONE (12:54)
[2021-10-09] MEDS ORDERED: ePHEDrine 50 MG/ML 1 ML VIAL ONE (12:54)
[2021-10-09] MEDS ORDERED: PROPOFOL 10 MG/ML 20 ML VIAL IV ONE (12:54)
[2021-10-09] MEDS ORDERED: LIDOCAINE 2% INJ 20 MG/ML (2 ML VIAL) ONE (12:54)
[2021-10-09] MEDS ORDERED: MIDAZOLAM 2 MG/2 ML VIAL ONE (12:54)
[2021-10-09] MEDS ORDERED: KETOROLAC 15 MG/ML 1 ML VIAL ONE (12:54)
[2021-10-09] MEDS ORDERED: HYDROmorphone (PF) 1 MG/ML ONE (12:54)
--- NOTE | 2021-10-09 13:07 | NM ---
EXAMINATION TYPE: NM sentinel node injection DATE OF EXAM: 10/09/2021 COMPARISON: Mammogram 07/09/2021 HISTORY: 65-year-old female with biopsy-proven left breast cancer. C50.212 TECHNIQUE AND FINDINGS: The procedure of sentinel lymph node injection was explained to the patient. The benefits, alternatives, and risks were discussed. An informed consent was then obtained. Overlying skin is cleaned with sterile alcohol. Following this, 503 uCi Tc99m Tilmanocept was inject ed in the upper outer aspect of the left nipple intradermally. The patient tolerated the procedure well without any immediate complication. The patient was kept in the radiology department for short stay after the procedure and then taken to surgery for surgical p rocedure what is presumed intraoperative gamma probe will be used for sentinel lymph node detection. IMPRESSION: Left breast radiotracer injection for sentinel node localization as above.
[2021-10-09] MEDS ORDERED: SODIUM CHLORIDE 0.9% 50 ML with ceFAZolin 2,000 MG IV ONE ×2 (13:15)
--- NOTE | 2021-10-09 14:48 | P.OP ---
Date of Procedure: 10/09/21 Preoperative Diagnosis: Left breast invasive ductal carcinoma Postoperative Diagnosis: same Procedure(s) Performed: Left sentinel node biopsy, left needle localization lumpectomy, crescent mastopexy, onco-,plastic tissue transfer 32.5 cm Anesthesia: ROSCOEA Surgeon: Mary Rush Estimated Blood Loss (ml): 20 IV fluids (ml): 800 Pathology: other (Gerber lymph node, breast tissue) Condition: stable Disposition: same day Indications for Procedure: Invasive ductal carcinoma left breast Operative Findings: Dense breast tissue Description of Procedure: The patient is a 65-year-old white female who underwent a left breast core biopsy which was positive for invasive ductal carcinoma. Risks and benefits of procedure were discussed with the patient and she has opted for a lumpectomy with sentinel node biopsy. Patient was seen first in the radiology department. Needle localization of the area of concern was performed. Injection of radiotracer was placed. The patient was then brought to the operative suite. Following induction of anesthesia the axilla was interrogated radioactivity was identified. The left breast and axilla were then prepped and draped in a sterile fashion. The axilla was approached initially. Using the [place] counter the area of greatest radioactivity was identified. An incision was made at this site and dissected down into the deep axillary tissues. The area of greatest radioactivity was dissected free the small bowel was identified this was resected the 10 second count was 9544. Further interrogation of the axilla revealed increased radioactivity and the tissue was grasped with an Allis clamp and resected. The 10 second count and this tissue was 5819. Palpation did not reveal any lesions of concern. In the 10 second background count in the axilla was 18. After assured that hemostasis was attained the wound was well irrigated. The deep tissues were closed using 3-0 Vicryl suture, and closure of the skin with a 4-0 Monocryl. The breast was then approached. In the preoperative skin markings had been placed. A crescent mastopexy. The area was de-epithelialized. The parenchyma of the breast was noted at the superior aspect of this dissection. The dissection was performed in the plane between the breast tissue subcutaneous tissue to the shaft of the wire. Surrounding tissue was excised. The area excised was 5 cm x 2.5 cm. This was dissected down posteriorly onto the pectoralis muscle. Following this the wound was well irrigated. Surgicel prior film was placed. Titanium clips were placed. Radiograph of the specimen after the patient for orientation revealed that the clip was removed. The patient then had medial and lateral pillars dissected. The plane was 5 cm x 2 cm and the lateral pole was 5 cm x 2 cm. This was a cannulated dissection of 10 cm. Total lung capacity tissue transfer was 32.5 cm. Following this the Kay[place] were brought together using 3-0 Vicryl suture. This was followed by closure of the crescent mastopexy incision was deepened through the Vicryl sutures followed by 4-0 Monocryl subcuticular sutures. The patient tolerated the procedure in stable condition. All instrument and sponge counts were correct at the end of the case. Steri-Strips were applied.
--- NOTE | 2021-10-09 14:50 | P.DS ---
Providers Attending physician: Mary Rush Primary care physician: Anurag Silverio Plan - Discharge Summary Discharge Rx Participant: Yes New Discharge Prescriptions: No Action busPIRone HCl [Buspar] 10 mg PO DAILY ALPRAZolam [Xanax] 0.5 mg PO DAILY Triamterene-Hctz 37.5-25Mg [Maxzide 37.5-25] 1 tab PO DAILY Citalopram Hydrobromide [CeleXA] 40 mg PO DAILY Multivit-Min/Iron/Folic/Lutein [Centrum Silver Women Tablet] 1 each PO DAILY Magnesium 200 mg PO DAILY Fish Oil/Dha/Epa [Fish Oil 1,200 mg Fish Oil] 1 each PO DAILY Calcium Carbonate [Calcium] 600 mg PO DAILY Biotin [Biotin Disolve] 5,000 mcg PO DAILY Discharge Medication List ALPRAZolam [Xanax] 0.5 mg PO DAILY 10/19/18 [History] Citalopram Hydrobromide [CeleXA] 40 mg PO DAILY 10/19/18 [History] Triamterene-Hctz 37.5-25Mg [Maxzide 37.5-25] 1 tab PO DAILY 10/19/18 [History] busPIRone HCl [Buspar] 10 mg PO DAILY 10/19/18 [History] Biotin [Biotin Disolve] 5,000 mcg PO DAILY 05/12/19 [History] Calcium Carbonate [Calcium] 600 mg PO DAILY 05/12/19 [History] Fish Oil/Dha/Epa [Fish Oil 1,200 mg Fish Oil] 1 each PO DAILY 05/12/19 [History] Magnesium 200 mg PO DAILY 05/12/19 [History] Multivit-Min/Iron/Folic/Lutein [Centrum Silver Women Tablet] 1 each PO DAILY 05/12/19 [History] Follow up Appointment(s)/Referral(s): Mary Rush MD [STAFF PHYSICIAN] - 1 Week Activity/Diet/Wound Care/Special Instructions: wear bra at all times may shower in [address] until seen by Dr. Puga Discharge Disposition: HOME SELF-CARE
[2021-10-09 15:17] VITALS: TEMP 97.3
[2021-10-09 16:00] VITALS: RESP 16
[2021-10-09 16:46] VITALS: PULSE 94
[2021-10-09 16:59] VITALS: BP 118/76
== END 2021-10-09 17:25 | disposition home or self-care (01) ==
LOC: OR 08:18
PROVIDERS: ATTEND Surgery
DX: D05.12 Intraductal carcinoma in situ of left breast (principal); Z79.899 Other long term (current) drug therapy
CPT/HCPCS: 38792; 19281; 14001; 19301; 38525; 88342; 88307; 88341; 76098; C1819; A9520; J2250; J1100; J2405; J0690; J2001 ×2; J3010; J1170; J1885; J2704; J1644

== ENCOUNTER → 2021-10-18 | Outpatient (CLI) | payer MEDICARE ==
[2021-10-18 16:31] VITALS: BP 147/79; PULSE 72; RESP 16; TEMP 97.8
--- NOTE | 2021-10-18 16:41 | P.PN ---
Progress Note - Text Progress Note Date: 10/18/21 Shantell is a 65-year-old white female status post left lumpectomy and sentinel node biopsy on 6721. Her margins were negative and 2 sentinel nodes were negative. Postoperatively she is doing well. Physical exam: Lungs: Clear Heart: Regular rate and rhythm Incisions: Clean and dry Impression: Invasive moderately differentiated ductal carcinoma left breast completely excised with negative sentinel lymph nodes Plan: Follow-up medical oncology Follow-up radiation oncology Follow-up here in 1 month CC: Dr. Silverio
== END ==
LOC: WWCWWP 16:08
PROVIDERS: ATTEND Surgery
DX: Z48.817 Encounter for surgical aftercare following surgery on the skin and subcutaneous tissue (principal); Z88.0 Allergy status to penicillin; Z88.9 Allergy status to unspecified drugs, medicaments and biological substances; Z87.891 Personal history of nicotine dependence

== ENCOUNTER → 2021-11-23 | Outpatient (CLI) | payer MEDICARE ==
[2021-11-23 10:32] VITALS: BP 135/78; PULSE 57; RESP 16; TEMP 97.7
--- NOTE | 2021-11-23 10:37 | P.PN ---
Progress Note - Text Progress Note Date: 11/23/21 Shantell is a 65-year-old white female status post left lumpectomy and sentinel node biopsy on 6721. Her margins were negative and 2 sentinel nodes were negative. Postoperatively she is doing well. Physical exam: Lungs: Clear Heart: Regular rate and rhythm Incisions: Clean and dry Impression: Invasive moderately differentiated ductal carcinoma left breast completely excised with negative sentinel lymph nodes Plan: Follow-up medical oncology appointment 12-11-21 Follow-up radiation oncology (she has started radiation she is 1/[address] done) Follow-up here in 4 months CC: Dr. Silverio
== END ==
LOC: WWCWWP 10:19
PROVIDERS: ATTEND Surgery
DX: Z48.817 Encounter for surgical aftercare following surgery on the skin and subcutaneous tissue (principal); Z88.0 Allergy status to penicillin; Z88.7 Allergy status to serum and vaccine; Z87.891 Personal history of nicotine dependence

== ENCOUNTER 2022-03-19 09:03 | Day surgery (SDC) | payer MEDICARE ==
[2022-03-13 10:30] VITALS: BMI 23.1
[~2022-03-19 09:03] MED LIST changes: -DEXAMETHASONE SOD PHOSPHATE 4 MG/ML 1 ML VIAL IV ONE; -HEPARIN SODIUM,PORCINE/PF 5,000 UNIT/0.5 ML SYRINGE SQ PRN; -HYDROmorphone 0.5 MG/0.5 ML SYRINGE IVP PRN; +LACTATED RINGERS 1,000 ML IV SCH; -LIDOCAINE 1% (10MG/ML) FOR IV START INTRADERMA PRN; -ONDANSETRON 4 MG/2 ML VIAL IVP ONE; -Pre Op ABX Message 1 EACH MISC MISCELLANE ONE
[2022-03-19 09:54] VITALS: RESP 16; TEMP 97.3
[2022-03-19] MEDS ORDERED: PROPOFOL 10 MG/ML 20 ML VIAL IV ONE (10:37)
[2022-03-19] MEDS ORDERED: LIDOCAINE 2% INJ 20 MG/ML (2 ML VIAL) ONE (10:37)
--- NOTE | 2022-03-19 11:00 | P.PCN ---
Date of Procedure: 03/19/22 Procedure(s) Performed: BRIEF HISTORY: Patient is a 66-year-old pleasant white female scheduled for an elective colonoscopy as a part of recent prior history of colon polyps. Last colonoscopy was 5 years ago. PROCEDURE PERFORMED: Colonoscopy. PREOPERATIVE DIAGNOSIS: History of colon polyps. IV sedation per Anesthesia. PROCEDURE: After informed consent was obtained, the patient, was brought into the endoscopy unit. IV sedation was administered by Anesthesia under continuous monitoring. Digital rectal examination was normal. Initially the Olympus CF-160 flexible video colonoscope was then inserted in the rectum, gradually advanced into the cecum without any difficulty. Careful examination was performed as the scope was gradually being withdrawn. Ileocecal valve and the appendiceal orifice were visualized and appeared normal. Prep was poor in some areas of the colon. Mucosa of the cecum, ascending colon, transverse colon, descending colon, sigmoid colon, and rectum appeared normal. Retroflexion was performed in the rectum and no lesions were seen. The patient tolerated the procedure well. IMPRESSION: Normal-appearing colon from rectum to cecum no evidence of colorectal neoplasia . RECOMMENDATIONS: Findings of this examination were discussed with the patient as well as a family. She was advised to have a repeat screening colonoscopy in 5 years because of prior history of colon polyps and somewhat poor prep noted on today's examination.
[2022-03-19 11:19] VITALS: BP 112/64; PULSE 72
== END 2022-03-19 11:43 | disposition home or self-care (01) ==
LOC: ORWHC2ENDO 09:03
PROVIDERS: ATTEND Internal Medicine Gastroenterology
DX: Z12.11 Encounter for screening for malignant neoplasm of colon (principal); I10 Essential (primary) hypertension; F41.9 Anxiety disorder, unspecified; Z88.0 Allergy status to penicillin; Z98.890 Other specified postprocedural states; Z86.010 Personal history of colon polyps; Z79.899 Other long term (current) drug therapy
CPT/HCPCS: G0105; J2704; J2001; 45378

== ENCOUNTER → 2022-03-22 | Outpatient (CLI) | payer MEDICARE ==
[2022-03-22 14:44] VITALS: BP 128/62; PULSE 70; RESP 17; TEMP 97.9
--- NOTE | 2022-03-22 14:54 | P.PN ---
Subjective Progress Note Date: 03/22/22 Chief Complaint: left breast stage I [id number]? Shantell is a 65 year old white female seen in consultation for Dr. Silverio regarding a biopsy proven left breast cancer. She had a routine mammogram on 07-09-21, followed by a diagnositc mammogram on an ultrasound on 07-24-21. This led to a core biopsy on 08-16-21. Pathology revealed an invasive ductal cancer. This was reviewed with the radiologist. This is about 1.2 cm in size. It is not complaining of any new lumps masses or nodules of concern in either breast prior to the biopsy. She had never had any surgeries or biopsies on her breast in the past. She is not complaining of any nipple discharge, skin changes in the breasts, trauma, or infection in the breast. 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 She underwent interferon treatment for 1 month, but stopped secondary to poor tolerance. She underwent resection of lymph nodes in her neck which were negative. She had extensive metastatic workup done approximately [address] scans and a PET scan all of which were negative. He underwent a left breast needle localization lumpectomy via crescent mastopexy incision and sentinel node biopsy and 6721. Her lymph nodes were negative and her margins were negative. She underwent adjuvant radiation therapy finishing on [id number]. Additionally she was recommended to have letrazole but she had muscle aches and she opted not to take this. Caffiene: few cups/day nicotine: stopped 8 years ago, use to smoke 1/PPD for 30 years second hand smoke: none chocolate: occasional BCP: 10 years, off of them for 40 years hormones: none Family History: mother: colon cancer Hormonal History: menarche: 12 , breast fed: yes, first born at 29 menopause: hysterectomy at 50, not for cancer, took one ovary done for bleeding; fibroid tumors BCP: 10 years off them for 40 years Surgical History: tonsil and adenoids 2 C-sections tubal left ear melanoma Medical History: anxiety HTN Social History: nicotine: former smoker alcohol: since May stopped drinking, was drinking daily wine Marijuana: Negative Drugs: Negative - Constitutional Constitutional: Denies chills, Denies fever - EENT Eyes: denies blurred vision, denies pain Ears: bilateral: decreased hearing, tinnitus Ears, nose, mouth and throat: Denies headache, Denies sore throat - Breasts Breasts: bilateral: as per HPI - Cardiovascular Cardiovascular: Denies chest pain, Denies shortness of breath - Respiratory Respiratory: Denies cough - Gastrointestinal Gastrointestinal: Denies abdominal pain, Denies diarrhea, Denies nausea, Denies vomiting - Genitourinary (Female) Genitourinary: Denies dysuria, Denies hematuria - Menstruation Menstruation: Reports post hysterectomy - Musculoskeletal Musculoskeletal: Denies myalgias - Integumentary Comment: history of melanoma Integumentary: Reports as per HPI - Neurological Neurological: Denies numbness, Denies weakness - Psychiatric Psychiatric: Reports anxiety - Endocrine Endocrine: Denies fatigue, Denies weight change - Hematologic/Lymphatic Comment: none - Allergic/Immunologic Allergic/Immunologic: Reports as per HPI Past Medical History Past Medical History: Cancer, Hypertension Additional Past Medical History / Comment(s): melanoma involving the ear. 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 History of Any Multi-Drug Resistant Organisms: None Reported Past Surgical History: Adenoidectomy, Section, Hysterectomy, Tonsillectomy, Tubal Ligation Additional Past Surgical History / Comment(s): section 2, AMAURY with R oophorectomy in 2003. Excision of melanoma skin cancer. Colonoscopy 2017(next after 5yr) Past Psychological History: Anxiety, Depression Smoking Status: Never smoker Past Alcohol Use History: Daily Additional Past Alcohol Use History / Comment(s): Quit smoking in 2013. Past Drug Use History: None Reported - Past Family History Father Family Medical History: Diabetes Mellitus Mother Family Medical History: Cancer Additional Family Medical History / Comment(s): Colon cancer in her 80s. Daughter(s) Additional Family Medical History / Comment(s): Bipolar disorder. Medications and Allergies Home Medications Medication Instructions Recorded Confirmed Type ALPRAZolam [Xanax] 0.5 mg PO DAILY 10/19/18 08/30/21 History Citalopram Hydrobromide [CeleXA] 40 mg PO DAILY 10/19/18 08/30/21 History Triamterene-Hctz 37.5-25Mg 1 tab PO DAILY 10/19/18 08/30/21 History [Maxzide 37.5-25] busPIRone HCl [Buspar] 10 mg PO DAILY 10/19/18 08/30/21 History Biotin [Biotin Disolve] 5,000 mcg PO DAILY 05/12/19 08/30/21 History Calcium Carbonate [Calcium] 600 mg PO DAILY 05/12/19 08/30/21 History Fish Oil/Dha/Epa [Fish Oil 1,200 1 each PO DAILY 05/12/19 08/30/21 History mg Fish Oil] Magnesium 200 mg PO DAILY 05/12/19 08/30/21 History Multivit-Min/Iron/Folic/Lutein 1 each PO DAILY 05/12/19 08/30/21 History [Centrum Silver Women Tablet] Allergies Allergy/AdvReac Type Severity Reaction Status Date / Time Penicillins Allergy Rash/Hives Verified 08/30/21 11:17 Objective - Vital Signs Vital signs: Intake & Output 03/21/22 03/22/22 03/22/22 18:59 06:59 18:59 Weight 71.214 kg - Constitutional General appearance: Present: cooperative - EENT Eyes: Present: EOMI ENT: Present: hearing grossly normal - Neck Neck: Present: normal ROM - Respiratory Respiratory: bilateral: CTA - Cardiovascular Rhythm: regular Heart sounds: normal: S1, S2 - Integumentary Integumentary: Present: normal turgor - Musculoskeletal Musculoskeletal: Present: gait normal - Psychiatric Psychiatric: Present: A&O x's 3, appropriate affect, intact judgment & insight - Additional findings Additional findings: Breast Exam: BRA: 36C Inspection: Asymmetry secondary to prior left breast lumpectomy; left nipple areolar complex approximately 3 cm higher than right nipple areolar complex Palpation: Right breast: Multiple positional exam fibrocystic changes no dominant masses or nodules of concern Axilla: No adenopathy of concern Left breast: Postop and post radiation changes no dominant masses or nodules of concern and multiple positional exam Left axilla: No adenopathy of concern Assessment and Plan Assessment: Impression: Asymmetry secondary to left breast lumpectomy and radiation therapy Left breast stage I invasive ductal carcinoma no evidence of recurrence Last bilateral mammogram 07-09-21 less than of concern noted in the right breast Plan: Mastopexy right breast secondary to asymmetry related to cancer surgery and radiation on the left breast Cc: Dr. Silverio
== END | disposition home or self-care (01) ==
LOC: WWCWWP 13:37
PROVIDERS: ATTEND Surgery
DX: Z53.9 Procedure and treatment not carried out, unspecified reason (principal)

== ENCOUNTER 2022-04-09 08:29 | Day surgery (SDC) | payer MEDICARE ==
[~2022-04-09 08:29] MED LIST changes: +DEXAMETHASONE SOD PHOSPHATE 4 MG/ML 1 ML VIAL IV ONE; +HEPARIN SODIUM,PORCINE/PF 5,000 UNIT/0.5 ML SYRINGE SQ PRN; +HYDROmorphone 0.5 MG/0.5 ML SYRINGE IVP PRN; +ONDANSETRON 4 MG/2 ML VIAL IVP ONE; +Pre Op ABX Message 1 EACH MISC MISCELLANE ONE
[2022-04-09] MEDS ORDERED: PROPOFOL 10 MG/ML 20 ML VIAL IV ONE (10:15)
[2022-04-09] MEDS ORDERED: MIDAZOLAM 2 MG/2 ML VIAL ONE (10:15)
[2022-04-09] MEDS ORDERED: ePHEDrine 50 MG/ML 1 ML VIAL ONE (10:15)
[2022-04-09] MEDS ORDERED: LIDOCAINE 2% INJ 20 MG/ML (2 ML VIAL) ONE (10:15)
[2022-04-09] MEDS ORDERED: GLYCOPYRROLATE 0.2 MG/ML 2 ML VIAL ONE (10:15)
[2022-04-09] MEDS ORDERED: fentaNYL (PF) 50 MCG/ML 2 ML AMP ONE (10:15)
[2022-04-09] MEDS ORDERED: SODIUM CHLORIDE 0.9% 100 ML with ceFAZolin 2,000 MG IV ONE ×2 (10:35)
--- NOTE | 2022-04-09 11:23 | P.OP ---
Date of Procedure: 04/09/22 Preoperative Diagnosis: Asymmetric location of nipple areolar complex right breast related to cancer treatment left breast Postoperative Diagnosis: Same Procedure(s) Performed: Right breast mastopexy placing nipple areolar complex approximately 3 cm Anesthesia: ROSCOEA Surgeon: Mary Rush Estimated Blood Loss (ml): 3 IV fluids (ml): 300 Pathology: other (De-epithelialized tissue) Condition: stable Disposition: same day Indications for Procedure: Asymmetry of the location of the nipple areolar complex right breast related to left breast cancer surgery Operative Findings: asymmetry of the nipple areola complex related to prior left breast cancer surgery Description of Procedure: Patient is a 66-year-old white female status post left breast lumpectomy and radiation therapy. She had asymmetry of the nipple areolar complex approximately 3 cm higher on the left than the right related to the cancer surgery. She wished for a right mastopexy procedure. The patient was seen in the preoperative area and surgical markings were placed. The areolar complex will be listed approximately 3 cm. Patient was brought to the operative suite. Following induction of anesthesia the right breast was prepped and draped in a sterile fashion. Utilizing the markings from the preoperative area the crescent of tissue was de-epithelialized superior to the nipple areolar complex. The subcutaneous tissue was entered to make a shelf to cause the elevation for the mastopexy. The mastopexy was performed using 3-0 Vicryl suture to elevate and tacked to the nipple areolar complex. A subcu tenia is 3-0 Vicryl suture was then withdrawn to reinforce this. A 4-0 Monocryl subcuticular suture was placed. This was followed by a 3- 0 nylon suture. The patient tolerated procedure in stable condition. The areolar complex was lifted approximately 3 cm.
--- NOTE | 2022-04-09 11:25 | P.DS ---
Providers Attending physician: Mary Rush Primary care physician: Anurag Silverio Plan - Discharge Summary Discharge Rx Participant: No New Discharge Prescriptions: No Action busPIRone HCl [Buspar] 10 mg PO DAILY ALPRAZolam [Xanax] 0.5 mg PO HS Triamterene-Hctz 37.5-25Mg [Maxzide 37.5-25] 1 tab PO DAILY Citalopram Hydrobromide [CeleXA] 40 mg PO DAILY Multivit-Min/Iron/Folic/Lutein [Centrum Silver Women Tablet] 1 each PO DAILY Magnesium 200 mg PO DAILY Fish Oil/Dha/Epa [Fish Oil 1,200 mg Fish Oil] 1 each PO DAILY Calcium Carbonate [Calcium] 600 mg PO DAILY Biotin [Biotin Disolve] 5,000 mcg PO DAILY Vitamin B Complex 1 each PO DAILY Ascorbic Acid [Vitamin C chew] 500 mg PO DAILY ALPRAZolam [Xanax] 0.25 mg PO DAILY PRN PRN Reason: Anxiety Discharge Medication List ALPRAZolam [Xanax] 0.5 mg PO HS 10/19/18 [History] Citalopram Hydrobromide [CeleXA] 40 mg PO DAILY 10/19/18 [History] Triamterene-Hctz 37.5-25Mg [Maxzide 37.5-25] 1 tab PO DAILY 10/19/18 [History] busPIRone HCl [Buspar] 10 mg PO DAILY 10/19/18 [History] Biotin [Biotin Disolve] 5,000 mcg PO DAILY 05/12/19 [History] Calcium Carbonate [Calcium] 600 mg PO DAILY 05/12/19 [History] Fish Oil/Dha/Epa [Fish Oil 1,200 mg Fish Oil] 1 each PO DAILY 05/12/19 [History] Magnesium 200 mg PO DAILY 05/12/19 [History] Multivit-Min/Iron/Folic/Lutein [Centrum Silver Women Tablet] 1 each PO DAILY 05/12/19 [History] Vitamin B Complex 1 each PO DAILY 10/18/21 [History] Ascorbic Acid [Vitamin C chew] 500 mg PO DAILY 03/13/22 [History] ALPRAZolam [Xanax] 0.25 mg PO DAILY PRN 04/05/22 [History] Follow up Appointment(s)/Referral(s): Mary Rush MD [STAFF PHYSICIAN] - 12/15/22 2:40 pm Activity/Diet/Wound Care/Special Instructions: do not drive until seen by DR. Puga may shower after 48 hours wear bra at all times Discharge Disposition: HOME SELF-CARE
[2022-04-09 11:39] VITALS: TEMP 96.9
[2022-04-09] MEDS ORDERED: LACTATED RINGERS 1,000 ML IV ONE (11:48)
[2022-04-09 13:07] VITALS: RESP 20
[2022-04-09 13:41] VITALS: BP 122/68; PULSE 79
== END 2022-04-09 13:49 | disposition home or self-care (01) ==
LOC: OR 08:29
PROVIDERS: ATTEND Surgery
DX: N64.89 Other specified disorders of breast (principal); I10 Essential (primary) hypertension; I34.1 Nonrheumatic mitral (valve) prolapse; F41.8 Other specified anxiety disorders; Z79.899 Other long term (current) drug therapy; Z85.3 Personal history of malignant neoplasm of breast; Z90.710 Acquired absence of both cervix and uterus
CPT/HCPCS: 19316; J2250; J1100; J2405; J0690; J3010; J2704; J1170; J1644; J2001; 88305

== ENCOUNTER → 2022-04-18 | Outpatient (CLI) | payer MEDICARE ==
--- NOTE | 2022-04-18 15:10 | P.PN ---
Progress Note - Text Progress Note Date: 04/18/22 Shantell is a 66 year old white female status post mastopexy of the right breast on 04-09-22. She tolerated the procedure without difficulty. PE: incision clean and dry Plan: bilateral mammogram in July 2022 with appointment at that time suture removal CC: Dr. Silverio
[2022-04-18 15:17] VITALS: BP 116/74; PULSE 54; RESP 12; TEMP 97.5
== END ==
LOC: WWCWWP 14:51
PROVIDERS: ATTEND Surgery
DX: Z12.31 Encounter for screening mammogram for malignant neoplasm of breast (principal); Z90.11 Acquired absence of right breast and nipple; Z88.0 Allergy status to penicillin; Z91.048 Other nonmedicinal substance allergy status; Z87.891 Personal history of nicotine dependence